=== PATIENT | female | born 1955 | race Caucasian/White ===

== ENCOUNTER → 2017-03-12 | Outpatient (CLI) | payer MEDICAID | LOC: FIMAGING 12:58 | PROVIDERS: ATTEND Psychiatry & Neurology Neurology | DX: M50.321 Other cervical disc degeneration at C4-C5 level (principal); M47.892 Other spondylosis, cervical region; G95.89 Other specified diseases of spinal cord ==

== ENCOUNTER 2017-08-20 05:11 | Observation (INO) | payer MEDICAID ==
[2017-08-20] MEDS ORDERED: GABAPENTIN 300 MG CAP PO ONE (05:38)
[2017-08-20] MEDS ORDERED: ceFAZolin 3 GM in D5W 100 ML IV ONE (05:38)
[2017-08-20] MEDS ORDERED: LIDOCAINE 1% 2 ML INJ ONE (06:12)
[2017-08-20] MEDS ORDERED: LIDOCAINE 1% 2 ML INJ ID PRN (06:14)
[2017-08-20] MEDS ORDERED: LR 1,000 ML IV ONE (06:14)
[2017-08-20] MEDS ORDERED: SURGIFLO MATRIX KIT WITH THROMBIN 8ml TP ONE (06:32)
[2017-08-20] MEDS ORDERED: THROMBIN (BOVINE) 5,000 UNIT VIAL TP ONE ×2 (06:33→07:41)
[2017-08-20] MEDS ORDERED: BUPIVACAINE 0.25% 30 ML SDV ONE (06:33)
[2017-08-20] MEDS ORDERED: BACITRACIN 50,000 UNITS/10 ML SYR IRR ONE (06:34)
[2017-08-20] MEDS ORDERED: CHLORHEXIDINE GLUC HIBICLENS 118 ML BTL TP ONE (06:35)
[2017-08-20] MEDS ORDERED: fentaNYL 100 MCG/2 ML INJ ONE ×4 (07:07→11:29)
[2017-08-20] MEDS ORDERED: MIDAZOLAM 2 MG/2 ML VIAL ONE (07:08)
[2017-08-20] MEDS ORDERED: PROPOFOL/EMULSION 500 MG/50 ML BOTTLE IV ONE ×2 (07:08→07:51)
[2017-08-20] MEDS ORDERED: ALBUMIN 5% 250 ML BOTTLE IV ONE (07:18)
[2017-08-20] MEDS ORDERED: ROCURONIUM 50 MG/5 ML VIAL ONE (07:48)
[2017-08-20] MEDS ORDERED: ONDANSETRON 4 MG/2 ML VIAL ONE (07:48)
[2017-08-20] MEDS ORDERED: DEXAMETHASONE 4 MG/ML VIAL ONE (07:48)
[2017-08-20] MEDS ORDERED: RANITIDINE 50 MG/2 ML VIAL ONE (07:48)
[2017-08-20] MEDS ORDERED: METOCLOPRAMIDE 10 MG/2 ML VIAL ONE (07:48)
[2017-08-20] MEDS ORDERED: LIDOCAINE 2% 5 ML SDV ONE (07:48)
--- NOTE | 2017-08-20 07:50 | PDANEPAE ---
ANE Past Medical History - Cardiovascular History Hx Hypertension: Yes Hx Arrhythmias: No Hx Chest Pain: No Hx Coronary Artery / Peripheral Vascular Disease: No Hx CHF / Valvular Disease: No Hx Palpitations: No Cardiovascular History Comment: HYPERLIPIDEMIA - Pulmonary History Hx COPD: No Hx Asthma/Reactive Airway Disease: No Hx Recent Upper Respiratory Infection: No Hx Oxygen in Use at Home: No Hx Sleep Apnea: No Sleep Apnea Screening Result - Last Documented: Negative - Neurologic History Hx Cerebrovascular Accident: No Hx Seizures: No Hx Dementia: No Neurologic History Comment: MIGRAINES - Endocrine History Hx Diabetes: No - Renal History Hx Renal Disorders: No - Liver History Hx Hepatic Disorders: No - Neurological & Psychiatric Hx Hx Neurological and Psychiatric Disorders: No - Cancer History Hx Cancer: No - Congenital Disorder History Hx Congenital Disorders: No - GI History Hx Gastrointestinal Disorders: No - Other Health History Other Health History: NEG - Chronic Pain History Chronic Pain: Yes (NECK AND LOW BACK) - Surgical History Prior Surgeries: HYSTERECTOMY. APPENDECTOMY. C SECTION ANE Review of Systems Review of Systems: - Exercise capacity METS (RN): 4 METS ANE Patient History - Allergies Allergies/Adverse Reactions: acetaminophen [From Tylenol] Allergy (Intermediate, Verified 02/02/14 11:42) Vomiting - Home Medications Home Medications: Atorvastatin Calcium [Lipitor 40 mg (*)] 40 mg PO HS 08/31/16 [Last Taken Unknown] Ibuprofen [Motrin (*)] 800 mg PO DAILY PRN 07/31/17 [Last Taken Unknown] Losartan Potassium [Cozaar 50 mg (*)] 50 mg PO HS 07/31/17 [Last Taken Unknown] SUMAtriptan [Imitrex 25 MG (*)] 25 mg PO DAILY PRN 08/06/17 [Last Taken Unknown] - NPO status NPO Since - Liquids (Date): 08/19/17 NPO Since - Liquids (Time): 21:30 NPO Since - Solids (Date): 08/19/17 NPO Since - Solids (Time): 05:30 - Smoking Hx Smoking Status: Never smoked - Family Anes Hx Family Hx Anesthesia Complications: NEG ANE Labs/Vital Signs - Vital Signs Blood Pressure: 114/77 Heart Rate: 73 Respiratory Rate: 16 O2 Sat (%): 93 Height: 154.94 cm Weight: 62.596 kg ANE Physical Exam - Airway Neck exam: FROM, short neck Mallampati Score: Class 2 Mouth exam: normal dental/mouth exam - Pulmonary Pulmonary: no respiratory distress, no rales or rhonchi, clear to auscultation - Cardiovascular Cardiovascular: regular rate and rhythym, no murmur, rub, or gallop - ASA Status ASA Status: III ANE Anesthesia Plan Anesthesia Plan: general endotracheal anesthesia Specialized Airway: video laryngoscope
[2017-08-20] MEDS ORDERED: LR 500 ML IV PRN (07:56)
[2017-08-20] MEDS ORDERED: METOCLOPRAMIDE 10 MG/2 ML VIAL IVP PRN (07:56)
[2017-08-20] MEDS ORDERED: DIAZEPAM 5 MG/ML 1 ML SYR IVP PRN (07:56)
[2017-08-20] MEDS ORDERED: DEXAMETHASONE 4 MG/ML VIAL IVP PRN (07:56)
[2017-08-20] MEDS ORDERED: PROMETHAZINE HCL 25 MG/ML INJ IVP PRN ×2 (07:56→09:56)
[2017-08-20] MEDS ORDERED: ALBUTEROL 3 ML DEYVIAL IH PRN (07:56)
[2017-08-20] MEDS ORDERED: ONDANSETRON 4 MG/2 ML VIAL IVP PRN ×2 (07:56→09:56)
[2017-08-20] MEDS ORDERED: MEPERIDINE 25 MG/ML SYR IVP PRN (07:56)
[2017-08-20] MEDS ORDERED: NALOXONE HCL 0.4 MG/ML INJ IVP PRN (07:56)
[2017-08-20] MEDS ORDERED: SUGAMMADEX SODIUM 200 MG/2 ML VIAL IVP ONE (09:30)
[2017-08-20] MEDS ORDERED: SUMAtriptan 25 MG TAB PO PRN (09:55)
[2017-08-20] MEDS ORDERED: BISACODYL 10 MG SUPP PR PRN (09:56)
[2017-08-20] MEDS ORDERED: LACTULOSE 20 GM/30 ML UDCUP PO PRN (09:56)
[2017-08-20] MEDS ORDERED: POLYETHYLENE GLYCOL 3350 17 GM PKT PO PRN (09:56)
[2017-08-20] MEDS ORDERED: ONDANSETRON DISINTEGRATING 4 MG TAB PO PRN (09:56)
[2017-08-20] MEDS ORDERED: MAGNESIUM HYDROXIDE 30 ML UDCUP PO PRN (09:56)
[2017-08-20] MEDS ORDERED: diphenhydrAMINE 25 MG CAP PO PRN (09:56)
[2017-08-20] MEDS ORDERED: NS W/ 20 KCl/L 1,000 ML IV SCH (10:00)
[2017-08-20] MEDS: fentaNYL 100 MCG/2 ML INJ IVP PRN ×3 (10:04→11:42)
[2017-08-20] MEDS: CYCLOBENZAPRINE 10 MG TAB PO PRN ×2 (10:46→20:26)
--- NOTE | 2017-08-20 10:46 | POSTOPPROG ---
Post Op Note Date of Operation: 08/20/17 Surgeon: Claude Seals Stallion Manager: Leandra Allen Anesthesia: GET(General Endotracheal) Pre-op Diagnosis: Cervical stenosis with myelopathy Post-op Diagnosis: Same Procedure: ACDF C4-6 Inf/Abcess present in the surg proc area at time of surgery?: No Depth: Organ Space EBL: Minimal SOAP Progress Note Assessment/Plan: Assessment: Plan: 08/20/17 10:43 S: Patient in PACU. Has expected posterior scapular pain. 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 Seals in PACU Objective: Vital Signs Temp Pulse Resp BP Pulse Ox 35.7 C L 73 12 138/81 H 100 08/20/17 09:48 08/20/17 09:18 08/20/17 10:40 08/20/17 10:31 08/20/17 10:40
--- NOTE | 2017-08-20 10:58 | GOP ---
[f rep st] OPERATIVE REPORT DATE OF OPERATION: 08/20/2017 SURGEON: Claude Seals MD NEUROSURGEON: Claude Seals MD MAIL TECHNICIAN: SARAH Winter PREOPERATIVE DIAGNOSIS: Cervical myelopathy. POSTOPERATIVE DIAGNOSIS: Cervical myelopathy. PROCEDURE PERFORMED: 1. C4-5, C5-6 anterior cervical diskectomy and fusion. 2. Placement of interbody device at C4-5, C5-6. 3. Anterior instrumentation C4-C6. 4. [place] of local autograft. 5. Use of allograft demineralized bone matrix. 6. Use of the operative microscope. 7. Intraoperative neurophysiologic monitoring including somatosensory evoked potentials and motor ev oked potentials. FINDINGS: Successful ACDF. SPECIMENS: There were no specimens. ESTIMATED BLOOD LOSS: 25 cc. INDICATIONS: The patient is a 61-year-old woman who presented with bilateral right greater than left arm and hand weakness and balance problems. She was found to be myelopathic on physical exam, and M RI showed severe cervical stenosis at C4-5 and worse at C5-6 with a large disk osteophyte complex tow gildardo the right side with cord compression and signal change. She was scheduled electively today for a nterior cervical decompression and fusion. DESCRIPTION OF PROCEDURE: After informed consent was obtained from the patient, the patient was brou ght to the operating room, was placed in supine position on the operating table. A formal time-out w as performed, identifying the patient by name, medical record number, and date of . Preoperativ e antibiotics were given. The endotracheal tube was placed and general endotracheal anesthesia was s moothly induced. The patient's head was then slightly extended and a shoulder roll was placed. All appropriate monitoring leads were placed for intraoperative somatosensory evoked potentials and motor evoked potentials. Baseline potentials were obtained. The level incision was visualized using a la teral x-ray and the neck was prepped and draped in the normal sterile fashion. Then, 10 cc of 0.25% Marcaine with epinephrine was infiltrated in the skin for hemostasis. The skin incision was then mad e using a 10 blade and the subcutaneous tissues were dissected using monopolar electrocautery. The s kin was undermined over the platysma to get a more longitudinal exposure and the platysma was opened in line with its fibers. The avascular plane between the sternocleidomastoid and the midline structu res were then dissected down to the prevertebral fascia. The prevertebral fascia was opened sharply a nd the nearest 2 disk spaces were visualized. A disk space marker was placed which marked the disk s pace at C5-6. The longus colli muscles were then elevated from the C5-6 and C4-5 disk spaces lateral ly. The anterior osteophytes were removed and then self-retaining retractors were placed under the l ongus colli bilaterally at C4-5. [place] pins were placed in the C4 and C5 vertebral bodies and the d isk space was placed under some mild distraction. The operative microscope was then brought on the [facility] and the remainder of the procedure was performed under high-power magnification. First, the disk was completely removed using curettes and pituitary forceps. The cartilaginous endpl ates were also removed using sharp curettes getting us down to bleeding bone. Posteriorly, the poste rior osteophytes were drilled down and the posterior longitudinal ligament was opened. The ligament was then removed completely into both foramen being sure that both foramina were widely decompressed. At this point, the endplates were drilled in parallel and the disk space was sized for a 7 x 14 x 1 6 mm Medtronic PTC cage. This cage was then packed with the locally harvested autograft from the ost eophytes and endplates as well as some demineralized bone matrix and this was placed into the intersp evaristo. Lateral x-ray confirmed good placement and the intraoperative neurophysiologic monitoring remai deni stable. We then moved the [place] distraction down to the C5-6 disk space which was also placed u nder some distraction. This disk space was quite collapsed. The anterior osteophytes were removed a nd the disk was removed. A 7 mm Sizer was then used to open the disk space further and it was placed under [place] distraction. We then drilled again the posterior osteophytes and there was a very larg e osteophyte on the right side, which was carefully drilled down. We were then able to separate this bone from the dura and it was completely removed, completely decompressing the thecal sac. Both for tristen were opened widely and again the endplates were drilled in parallel. This was again sized for a 7 x 14 x 16 mm Medtronic PTC cage, which was packed with the locally harvested autograft and allogr aft demineralized bone matrix. This was then placed into the C5-C6 disk space and a lateral radiogra ph again confirmed good placement. Motor-evoked and somatosensory-evoked potentials remained stable. At this point, the wound was copiously irrigated using bacitracin irrigation. The anterior surface of the spine was sized for a 37 mm Medtronic Zevo plate, which was bent into slight lordosis and thi s was then secured to each of the C4, C5 and C6 vertebral bodies using 15 mm titanium screws. Again, a lateral radiograph confirmed good placement of all the hardware. The neurophysiologic monitoring remained stable. Again, the wound was copiously irrigated using bacitracin irrigation. All bleeding was controlled with bipolar electrocautery. The wound was completely dry, so no drain was placed. The platysma was closed using interrupted 2-0 Vicryls. The deep dermis was closed using interrupted 2 -0 Vicryl. The skin was closed using Dermabond. The patient was awakened in the operating room. Siomara caldera was transferred to the PACU in stable condition. There were no operative complications. I was scr ubbed and present for the entire procedure. FLUIDS AND URINE OUTPUT: Per the Anesthesia record. DRAIN: There were no drains. COUNT: All sponge and needle counts were correct at the end of the case. All neurophysiologic monit oring remained at baseline throughout the case. /[id number]/MODL
[2017-08-20] MEDS ORDERED: oxyCODONE IR 5 MG TAB ONE (11:29)
[2017-08-20] MEDS ORDERED: ACETAMINOPHEN 325 MG TAB ONE (11:29)
--- NOTE | 2017-08-20 11:31 | POSTANESTH ---
Post Anesthetic Evaluation Cardiovascular Status: Normal, Stable Respiratory Status: Normal, Stable Level of Consciousness/Mental Status: Mildly Sleepy, Arousable Pain Control: Adequate, Prn Tx Ordered Nausea/Vomiting Control: Adequate, Prn Tx Ordered Complications Possibly Related to Anesthesia: None Noted
[2017-08-20] MEDS: oxyCODONE IR 5 MG TAB PO PRN ×3 (11:39→20:26)
[2017-08-20] MEDS: ceFAZolin 2 GM/SWFI 2 GM/20 ML SYR IVP SCH (13:44)
[2017-08-20] MEDS ORDERED: ceFAZolin 2 GM/DEXTROSE 100 ML IV SCH (14:00)
--- NOTE | 2017-08-20 16:24 | ASMTCMCOM ---
CM Note CM Note Notes: Pt is s/p C4-5, C5-6 diskectomy and fusion. PT/OT/SLT evals pending. CM will follow for any d/c needs. Date Signed: 08/20/2017 04:23 PM Electronically Signed By:CHAI Banuelos
--- NOTE | 2017-08-20 17:23 | SOAPPROG ---
SOAP Progress Note Assessment/Plan: Assessment Patient has superficial corneal abrasion in the left eye. She complained of dry and painful eye. Eye lubricant applied and covered with patch around 1pm. By 5pm when I went to visit her, the eye was feeling better, less painful. I reassured her that most corneal abrasions heal in 24 hr and she should be better tomorrow. Plan:Reapply the eye ointment as needed and avoid rubbing the eye if possible 08/20/17 17:19 Subjective: 1eye pain left Objective: Vital Signs Temp Pulse Resp BP Pulse Ox 36.6 C 114 H 16 130/77 H 96 08/20/17 16:11 08/20/17 16:11 08/20/17 16:11 08/20/17 16:11 08/20/17 16:11 08/19/17 08/20/17 08/21/17 05:59 05:59 05:59 Intake Total 1600 Output Total 670 Balance 930 1 - Time Spent With Patient Time Spent With Patient: 10min ICD10 Worksheet Patient Problems: Problems Problem Status Onset Cervical myelopathy Acute
[2017-08-20] MEDS: LOSARTAN POTASSIUM 50 MG TAB PO SCH ×2 (20:26→20:27)
[2017-08-20] MEDS: SENNOSIDES/DOCUSATE SODIUM TAB PO SCH (20:29)
[2017-08-20] MEDS ORDERED: ATORVASTATIN CALCIUM 40 MG TAB PO SCH (21:00)
[2017-08-21] MEDS: ceFAZolin 2 GM/SWFI 2 GM/20 ML SYR IVP SCH (01:18)
[2017-08-21] MEDS: oxyCODONE IR 5 MG TAB PO PRN ×3 (03:01→14:09)
[2017-08-21] MEDS: SENNOSIDES/DOCUSATE SODIUM TAB PO SCH (07:13)
--- NOTE | 2017-08-21 07:20 | NEUSURGPN ---
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 Seals Subjective: Pt resting in bed, states she is having some mild swallowing issues, eye pain is improved. Arms feel ok. Objective: AAOx3 NAD VSS MAEx4 Motor 5/5 BUE/BLE Clonus BLE C collar on Incision cdi Urinary Catheter in Place: No - Physician Discussed Patient with : Arnel Patient Seen by : Arnel Neurosurgery Physical Exam - Vitals, I&O, Labs I and O 08/20/17 08/21/17 08/22/17 05:59 05:59 05:59 Intake Total 2500 Output Total 1970 Balance 530 Weight 62.59 kg Intake: Oral (ml) 1500 IV Intake (ml) 1000 Output: Urine (ml) 1950 Toilet 1950 Estimated Blood Loss (ml) 20 Other: Intake Quantity Yes Sufficient Number of Voids Toilet 1 Vital Signs Temp Pulse Resp BP Pulse Ox 36.6 C 98 17 124/71 H 97 08/21/17 03:25 08/21/17 03:25 08/21/17 03:25 08/21/17 03:25 08/21/17 03:25 ICD10 Worksheet Patient Problems: Problems Problem Status Onset Cervical myelopathy Acute - ICD10 Problem Qualifiers (1) Cervical myelopathy
--- NOTE | 2017-08-21 15:41 | ASMTCMCOM ---
CM Note CM Note Notes: OT rec home/outpatient, PT rec home, [facility] rec home. Anticipate pt will d/c when medically stable with family support. No CM d/c needs identified at this time. CM available for changes/needs. Date Signed: 08/21/2017 03:41 PM Electronically Signed By:CHAI Killian
[2017-08-21 15:57] VITALS: BP 125/67; PULSE 92; RESP 15; TEMP 98.4; O2SAT 85
[2017-08-23] MEDS ORDERED: ENOXAPARIN 40 MG/0.4 ML SYR SC SCH (09:00)
== END 2017-08-21 17:46 | disposition home or self-care (01) ==
LOC: F3N 05:11
PROVIDERS: ADMIT Neurological Surgery; ATTEND Neurological Surgery
PROC: 4A10X4G Monitoring of Central Nervous Electrical Activity, Intraoperative, External Approach (ICD-10-PCS; principal; 2017-08-20 07:15)
PROC: 0RB30ZZ Excision of Cervical Vertebral Disc, Open Approach (ICD-10-PCS; principal; 2017-08-20 07:15)
PROC: 00NW0ZZ Release Cervical Spinal Cord, Open Approach (ICD-10-PCS; principal; 2017-08-20 07:15)
PROC: 0RG20A0 Fusion of 2 or more Cervical Vertebral Joints with Interbody Fusion Device, Anterior Approach, Anterior Column, Open Approach (ICD-10-PCS; principal; 2017-08-20 07:15)
DX: M47.12 Other spondylosis with myelopathy, cervical region (principal); S05.02XA Injury of conjunctiva and corneal abrasion without foreign body, left eye, initial encounter; X58.XXXA Exposure to other specified factors, initial encounter; Y92.234 Operating room of hospital as the place of occurrence of the external cause; Y99.8 Other external cause status; I10 Essential (primary) hypertension
CPT/HCPCS: 22551; 22552; 72040; 76001; 92610; 97116; 97161; 97165; 97535; G0378; C1713; J0171; J0690; J1100; J2250; J2270; J2405; J2704; J2765; J2780; J3010; P9041

== ENCOUNTER → 2017-12-04 | Outpatient (CLI) | payer MEDICAID | LOC: FIMAGING 13:11 | PROVIDERS: ATTEND Physician Assistant | DX: M54.2 Cervicalgia (principal); Z98.1 Arthrodesis status ==

== ENCOUNTER → 2018-02-22 | Outpatient (CLI) | payer MEDICAID | LOC: FIMAGING 18:39 | PROVIDERS: ATTEND Physician Assistant | DX: M51.16 Intervertebral disc disorders with radiculopathy, lumbar region (principal) ==

== ENCOUNTER → 2018-03-06 | Outpatient (CLI) | payer MEDICAID | LOC: FIMAGING 17:07 | PROVIDERS: ATTEND Neurological Surgery | DX: Z47.89 Encounter for other orthopedic aftercare (principal); Z98.1 Arthrodesis status ==

== ENCOUNTER → 2018-03-21 | Outpatient (CLI) | payer MEDICAID | LOC: FIMAGING 09:16 | PROVIDERS: ATTEND Physician Assistant | DX: M51.36 Other intervertebral disc degeneration, lumbar region (principal); M43.16 Spondylolisthesis, lumbar region; M53.87 Other specified dorsopathies, lumbosacral region; M41.86 Other forms of scoliosis, lumbar region ==

== ENCOUNTER 2018-03-25 07:04 | Inpatient (IN) | payer MEDICAID ==
[2018-03-25] MEDS ORDERED: LIDOCAINE 1% 2 ML INJ ID PRN (07:18)
[2018-03-25] MEDS ORDERED: ceFAZolin 2 GM/DEXTROSE 100 ML IV ONE (07:18)
[2018-03-25] MEDS ORDERED: LR 1,000 ML IV ONE (07:18)
[2018-03-25] MEDS ORDERED: GABAPENTIN 300 MG CAP PO ONE (07:18)
--- NOTE | 2018-03-25 09:16 | PDHPUP ---
History & Physical Update H&P update statement: This history and physical update is based on an assessment of the patient which was completed after admission or registration (within 24 hours), but prior to the surgery/procedure. H&P update: H&P reviewed & patient examined, no change in patient's condition since H&P completed
[2018-03-25] MEDS ORDERED: BUPIVACAINE 0.25% 30 ML SDV ONE (09:17)
[2018-03-25] MEDS ORDERED: CHLORHEXIDINE GLUC HIBICLENS 118 ML BTL TP ONE (09:17)
[2018-03-25] MEDS ORDERED: EPINEPHrine 1 MG/ML INJ ONE (09:18)
[2018-03-25] MEDS ORDERED: BACITRACIN 50,000 UNITS/10 ML SYR IRR ONE (09:18)
[2018-03-25] MEDS ORDERED: THROMBIN (BOVINE) 5,000 UNIT VIAL TP ONE ×2 (09:18→09:43)
[2018-03-25] MEDS ORDERED: REMIFENTANIL HCL 1 MG VIAL ONE (09:35)
[2018-03-25] MEDS ORDERED: PROPOFOL 200 MG/20 ML VIAL ONE (09:35)
[2018-03-25] MEDS ORDERED: ROCURONIUM 50 MG/5 ML VIAL ONE (09:36)
[2018-03-25] MEDS ORDERED: LIDOCAINE 2% 2 ML INJ ONE (09:36)
[2018-03-25] MEDS ORDERED: PROPOFOL/EMULSION 500 MG/50 ML BOTTLE IV ONE (09:36)
[2018-03-25] MEDS ORDERED: MIDAZOLAM 2 MG/2 ML VIAL ONE (09:41)
[2018-03-25] MEDS ORDERED: MIDAZOLAM 2 MG/2 ML VIAL IVP ONE (09:41)
--- NOTE | 2018-03-25 09:42 | PDANEPAE ---
ANE History of Present Illness 62 year old with spinal stenosis ANE Past Medical History - Cardiovascular History Hx Hypertension: Yes Hx Arrhythmias: No Hx Chest Pain: No Hx Coronary Artery / Peripheral Vascular Disease: No Hx CHF / Valvular Disease: No Hx Palpitations: No Cardiovascular History Comment: HYPERLIPIDEMIA - Pulmonary History Hx COPD: No Hx Asthma/Reactive Airway Disease: No Hx Recent Upper Respiratory Infection: No Hx Oxygen in Use at Home: No Hx Sleep Apnea: No Sleep Apnea Screening Result - Last Documented: Negative - Neurologic History Hx Cerebrovascular Accident: No Hx Seizures: No Hx Dementia: No Neurologic History Comment: MIGRAINES - Endocrine History Hx Diabetes: No - Renal History Hx Renal Disorders: No - Liver History Hx Hepatic Disorders: No - Neurological & Psychiatric Hx Hx Neurological and Psychiatric Disorders: No - Cancer History Hx Cancer: No - Congenital Disorder History Hx Congenital Disorders: No - GI History Hx Gastrointestinal Disorders: No Gastrointestinal History Comment: hx of hemorrhoidectomy - Other Health History Other Health History: wears glasses - Chronic Pain History Chronic Pain: Yes (back) - Surgical History Prior Surgeries: 08/20/17 ACDF C4-6 with Seals. 01/26/12 hemorrhoidectomy with [facility]. HYSTERECTOMY. APPENDECTOMY. C SECTION ANE Review of Systems Review of systems is: negative Review of Systems: - Exercise capacity METS (RN): 4 METS ANE Patient History - Allergies Allergies/Adverse Reactions: acetaminophen [From Tylenol] Allergy (Verified 03/20/18 13:12) Vomiting - Home Medications Home medications: home medication list seen and reviewed Home Medications: Atorvastatin Calcium [Lipitor 40 mg (*)] 40 mg PO HS 08/31/16 [Last Taken ] Losartan Potassium [Cozaar 50 mg (*)] 50 mg PO HS 07/31/17 [Last Taken 03/23/18] SUMAtriptan [Imitrex 25 MG (*)] 25 mg PO DAILY PRN 08/06/17 [Last Taken 2 Weeks Ago ~03/11/18] Fluticasone Nasal [Flonase Nasal [place] (RX)] 2 sprays EACHNARE DAILY PRN [Last Taken 1 Month Ago ~02/23/18] - NPO status NPO Since - Liquids (Date): 03/24/18 NPO Since - Liquids (Time): 20:30 NPO Since - Solids (Date): 03/24/18 NPO Since - Solids (Time): 20:00 - Smoking Hx Smoking Status: Never smoked - Family Anes Hx Family Hx Anesthesia Complications: none ANE Labs/Vital Signs - Vital Signs Blood Pressure: 147/88 Heart Rate: 68 Respiratory Rate: 16 O2 Sat (%): 98 Height: 154.94 cm Weight: 61.235 kg ANE Physical Exam - Airway Neck exam: FROM Mallampati Score: Class 2 Mouth exam: normal dental/mouth exam - Pulmonary Pulmonary: no respiratory distress - Cardiovascular Cardiovascular: regular rate and rhythym - ASA Status ASA Status: II ANE Anesthesia Plan Anesthesia Plan: general endotracheal anesthesia
[2018-03-25] MEDS ORDERED: THROMBIN (BOVINE) 20,000 UNIT VIAL TP ONE (10:12)
[2018-03-25] MEDS ORDERED: NALOXONE HCL 0.4 MG/ML INJ IVP PRN (14:18)
[2018-03-25] MEDS ORDERED: ONDANSETRON 4 MG/2 ML VIAL IVP PRN ×2 (14:18→14:48)
[2018-03-25] MEDS ORDERED: PROMETHAZINE HCL 25 MG/ML INJ IVP PRN ×2 (14:18→14:48)
--- NOTE | 2018-03-25 14:31 | POSTANESTH ---
Post Anesthetic Evaluation Cardiovascular Status: Normal, Stable Respiratory Status: Normal, Stable Level of Consciousness/Mental Status: Can Participate in Eval Pain Control: Inadeq, Add Tx Required Nausea/Vomiting Control: Adequate, Prn Tx Ordered Complications Possibly Related to Anesthesia: None Noted
[2018-03-25] MEDS ORDERED: fentaNYL 100 MCG/2 ML INJ ONE ×3 (14:32→15:57)
[2018-03-25] MEDS: fentaNYL 100 MCG/2 ML INJ IVP PRN ×4 (14:34→15:32)
[2018-03-25] MEDS ORDERED: METHOCARBAMOL 1,000 MG in NS 50 ML IV ONE (14:45)
[2018-03-25] MEDS ORDERED: HYDROmorphONE/DILAUDID 2 MG/ML INJ ONE (14:45)
[2018-03-25] MEDS ORDERED: SUMAtriptan 25 MG TAB PO PRN (14:46)
[2018-03-25] MEDS ORDERED: FLUTICASONE NASAL 120 SPRAYS/16 GM MDI EACHNARE PRN (14:46)
[2018-03-25] MEDS: HYDROmorphONE/DILAUDID 2 MG/ML INJ IVP PRN ×2 (14:46→15:20)
[2018-03-25] MEDS ORDERED: LACTULOSE 20 GM/30 ML UDCUP PO PRN (14:48)
[2018-03-25] MEDS ORDERED: BISACODYL 10 MG SUPP PR PRN (14:48)
[2018-03-25] MEDS ORDERED: POLYETHYLENE GLYCOL 3350 17 GM PKT PO PRN (14:48)
[2018-03-25] MEDS ORDERED: MAGNESIUM HYDROXIDE 30 ML UDCUP PO PRN (14:48)
[2018-03-25] MEDS ORDERED: NS 1,000 ML IV SCH (15:00)
--- NOTE | 2018-03-25 15:02 | POSTOPPROG ---
Post Op Note Date of Operation: 03/25/18 Surgeon: Claude Seals Copy Messenger: Leandra Allen PA-C Anesthesia: GET(General Endotracheal) Pre-op Diagnosis: Lumbar Spondylolisthesis Post-op Diagnosis: Same Procedure: L4/5, L5/S1 TLIF with central decompression at L4/5 Inf/Abcess present in the surg proc area at time of surgery?: No EBL: 50-100 (50) Complications: one observed SOAP Progress Note Assessment/Plan: Assessment: Plan: 03/25/18 14:59 S: Patient is in PACU complaining of expected back pain. O: NAD, VSS PERRL, EOMI Following commands BLE 5/5 = Sensation intact to lt touch Incisions c/d/i-dressed A; 62 yo female sp MIS L4/5, L5/S1 TLIF and central decompression at L4/5 for spondylolisthesis and right leg pain P: -Admit to med/surg -Optimize pain management -Advance diet as tolerated -Postop x-rays in am -PT/OT -Remove sibley in am -No brace -DVT: TEDs, SCDs, Lovenox to start POD #1 -Seen by Dr. Seals in PACU Objective: Vital Signs Temp Pulse Resp BP Pulse Ox 36.3 C 68 16 147/88 H 98 03/25/18 14:25 03/25/18 09:42 03/25/18 09:42 03/25/18 09:42 03/25/18 14:58
[2018-03-25] MEDS ORDERED: KETOROLAC 30 MG/1 ML SDV IVP ONE (15:09)
[2018-03-25] MEDS ORDERED: KETOROLAC 30 MG/1 ML SDV ONE ×4 (15:10→15:15)
[2018-03-25] MEDS ORDERED: oxyCODONE IR 5 MG TAB ONE (15:57)
[2018-03-25] MEDS: oxyCODONE IR 5 MG TAB PO PRN ×3 (15:58→22:57)
--- NOTE | 2018-03-25 16:25 | GOP ---
DATE OF OPERATION: 03/25/2018 SURGEON: Claude Seals MD NEUROSURGEON: Claude Seals MD. BOILERMAKER MECHANIC: [facility] ANESTHESIA: General endotracheal. PREOPERATIVE DIAGNOSIS: Lumbar stenosis with spondylolisthesis at L5-S1 and severe stenosis at L4-5. POSTOPERATIVE DIAGNOSIS: Lumbar stenosis with spondylolisthesis at L5-S1 and severe stenosis at L4-5 . PROCEDURE PERFORMED: 1. Minimally invasive lumbar decompression at L4-5. 2. Minimally invasive transforaminal lumbar interbody fusion, L4-5, L5-S1. 3. Placement of interbody device, L4-5, L5-S1. 4. Posterior spinal fusion L4 to S1. 5. [place] of local autograft. 6. Use of allograft, BMP, and cancellous bone chips. 7. O-arm/Stealth stereotactic navigation for screw and tubular retractor placement. 8. Use of the operating microscope. 9. Intraoperative somatosensory evoked potential and EMG monitoring. FINDINGS: Successful L4 to S1 TLIF. SPECIMENS: None. There were no drains. ESTIMATED BLOOD LOSS: 50 mL. Fluids and urine output per the anesthesia record. INDICATIONS: The patient is a 62-year-old woman whom I have previously done ACDF surgery on for cerv ical radiculopathy. She presented back to the clinic with bilateral leg numbness and right leg pain. MRI reveals a spondylolisthesis at L5-S1 and severe canal stenosis with very severe facet arthropat hy at L4-5. Of note, she has a transitional lumbar anatomy and therefore the numbering of the inters paces is as was done on the MRI scan. We discussed with her the option of decompression and lumbar i nterbody fusion at L4-5 and L5-S1. She presents electively today for the surgery. DESCRIPTION OF PROCEDURE: After informed consent was obtained from the patient, the patient was brou ght to the operating room and a formal time-out was performed, identifying the patient by name, medic al record number, and date of . Preoperative antibiotics were given. The endotracheal tube was placed and general endotracheal anesthesia was smoothly induced. All appropriate leads were placed for intraoperative neurophysiologic monitoring. The patient was turned to the prone position on the Dhiraj table. All appropriate pressure points were padded and checked. The lumbar region was then prepped and draped in normal sterile fashion. A stab incision was made over the left iliac crest, an d the percutaneous navigation pin was placed in the iliac crest. The navigation frame was attached a nd an O-arm spin was obtained, showing the relevant anatomy from L3 to S1. At this point, the naviga tion was then used to localize a trajectory to the L4-5 and L5-S1 disk spaces as well as the trajecto ry to each pedicle at L4, L5, and S1. These trajectories were marked laterally to form 2 cm Juan i ncisions on both sides. On the right side, the incision was made using a 10 blade and the subcutaneo us tissues were dissected using monopolar electrocautery. The superficial fascia was opened and sepa rated from the deep lumbar fascia, and this allowed us to get a more medial trajectory. The fascia w as then opened near the midline and the metrics tubular retractors were used to dock onto the L4 lami na over the L4-5 interspace. An 18 mm x 7 cm quadrant retractor was then placed and opened. The ope rative microscope was brought on the field and the remainder of the procedure was performed under hig h-power magnification. First, the muscle was debrided from the lamina and facet joint. The high-speed drill with a 3 mm aaliyah mond bur was then used to drill a hemilaminotomy and medial facetectomy at L4-5 on the right side. T he yellow ligament was then opened and the yellow ligament was quite redundant and compressive of the dura. As we continued removing ligament, the dura was decompressed. The traversing L5 nerve root w as completely decompressed and we were able to then drill the undersurface of the contralateral minerva a and decompress the opposite side, as well. Once we had a good decompression, copious irrigation wa s used to irrigate the epidural space and some Gelfoam was placed over the opening. The retractor wa s then removed, and the fascia was closed using interrupted 0 Vicryl. We then made a 2nd fascial inc ision more lateral under the Juan incision, in line with the pedicles of L4, L5, and S1. The tubul ar dilators were used to dilate onto the L4-5 facet joint and again an 18 mm by 7 cm quadrant retract or was docked into the right-sided facet joint. There was extreme facet hypertrophy, making this fide ewhat difficult. Using navigation, we then localized the undersurface of the L4 pedicle and the supe rior surface of the L5 pedicle as well as medial as we could obtain toward the laminectomy that we acosta shelbi already performed. The high-speed drill with a 3 mm adilson bur was used to drill a trough just in ferior to the L4 pedicle and just superior to the L5 pedicle. The inferior facet of L4 was completel y removed and the superior facet of L5 was drilled, completely decompressing the foramen. At this po int, the remainder of the yellow ligament was removed, completely decompressing the traversing L5 ner ve root. After this was decompressed, the disk space was evident. The nerve root was retracted medi ally and the disk space was incised. A combination of constantino and curettes was used to perform a com plete diskectomy, and the cartilaginous endplates were removed, leaving bleeding bone. We continued removing disk and scraping the endplates to perform a good fusion. A piece of BMP and some morselize d autograft as well as allograft cancellous bone chips were then placed into the disk space and then the disk space was sized for a 7 x 28 mm Atlas [employer] Elevate cage, which was packed with further BMP an d autograft. This was then placed into the interspace using navigation and opened to its full extent . More bone graft was packed laterally into the interspace for good interbody fusion. At this point , a piece of Gelfoam was placed over the nerve root in the foramen and the metrics dilators were then again used to remove the retractors down to the L5-S1 facet joint. The same procedure was performed where the inner surface of the L5 pedicle and the superior surface of the S1 pedicle were localized using the navigation and troughs were drilled below the L5 pedicle and above the S1 pedicle. Drillin g medially, we removed the inferior facet of L5 and this allowed some decompression of the nerve root . Again, the redundant yellow ligament was completely removed, completely decompressing the traversi ng S1 nerve root and the exiting L5 nerve root. The disk space again was visualized where the spondy lolisthesis was located, and we retracted the S1 nerve root medially. The disk space was then entere d and again a radical diskectomy was performed as described above. Once the cartilaginous endplates had been removed and the disk had been removed completely removed, some BMP and autograft mixed with cancellous bone chip allograft was placed into the disk space. This interspace was sized for a 7 x 2 3 mm Medtronic Elevate cage, which was packed with some BMP and autograft. This was again placed int o the interspace using stereotaxis and then opened to its full extent. Again, more bone graft was pl aced in the interbody space for the interbody fusion. Next, the retractor was removed. A 2nd O-arm spin was obtained, showing the cages in good placement and to get the better anatomy of the pedicles. The sharp tip awl was then used to tabatha the pedicle e ntry points at L4, L5, and S1 on both sides. A 5.5 mm tap was used with navigation to tap each pedic le in succession. Medtronic Solera screws with reduction towers were then placed at each level and 6 .5 x 50 mm screws were placed bilaterally at L4, 6.5 x 50 mm screws were placed bilaterally at L5 and 6.5 x 45 mm screws were placed bilaterally at S1. X-rays were taken and confirmed the screw placeme nt, but each screw had been placed with navigation. At this point, 4.75 x 50 mm titanium rods were p laced in the reduction towers and locked in place using the locking caps. The caps were tightened do wn to their final torque and the reduction towers were removed. Final AP and lateral x-ray showed al l the screws in good placement and the cages in excellent placement, as well. At this point, both wo unds were copiously irrigated using bacitracin irrigation. The fascia was closed using interrupted 0 Vicryl, the deep dermis was closed using interrupted 2-0 Vicryl, and the skin was closed using [place] perez. The navigation pin was removed. Sterile dressings were placed. The patient was then turned b ack in the supine position, where she was extubated and transferred to the PACU in stable condition. There were no operative complications. I was scrubbed and present for the entire procedure. All sp onge and needle counts were correct at the end of the case. /[id number]/MODL
--- NOTE | 2018-03-25 16:39 | PDMN ---
Medical Necessity Medical necessity: 62 yo sp CPT 83255 Lumbar Fusion, MCG S820, MC IP Only, s/p L4/5, L5-S1 TLIF w/ Stealth w/ central recess decompression
[2018-03-25] MEDS: POLYETHYLENE GLYCOL 3350 17 GM PKT PO SCH ×2 (16:56→22:57)
[2018-03-25] MEDS: ceFAZolin 2 GM/DEXTROSE 100 ML IV SCH (18:07)
[2018-03-25] MEDS: METHOCARBAMOL 750 MG TAB PO PRN (18:19)
[2018-03-25] MEDS ORDERED: PETROLAT,WHT/MIN OIL/SOD CHL 3.5 GM OPHT.OINT EACHEYE PRN (18:32)
[2018-03-25] MEDS: FAMOTIDINE 20 MG TAB PO SCH (20:36)
[2018-03-25] MEDS: LOSARTAN POTASSIUM 50 MG TAB PO SCH (20:36)
[2018-03-25] MEDS: SENNOSIDES/DOCUSATE SODIUM TAB PO SCH (20:37)
[2018-03-25] MEDS: ATORVASTATIN CALCIUM 40 MG TAB PO SCH (20:37)
[2018-03-25] MEDS: ACETAMINOPHEN 500 MG TAB PO SCH (22:56)
[2018-03-26] MEDS: METHOCARBAMOL 750 MG TAB PO PRN ×3 (00:13→15:53)
[2018-03-26] MEDS: oxyCODONE IR 5 MG TAB PO PRN ×4 (03:01→21:23)
[2018-03-26] MEDS: ceFAZolin 2 GM/DEXTROSE 100 ML IV SCH (03:02)
[2018-03-26] MEDS: ACETAMINOPHEN 500 MG TAB PO SCH ×3 (05:24→21:22)
--- NOTE | 2018-03-26 08:27 | NEUSURGPN ---
Date of Surgery: 03/25/18 Post Op Day: 1 Assessment/Plan: Assessment: 62 yo female sp MIS L4/5, L5/S1 TLIF and central decompression at L4 /5 for spondylolisthesis and right leg pain POD#1 Plan: -Optimize pain management -Advance diet as tolerated -Postop x-rays pending -PT/OT -No brace -DVT: TEDs, SCDs, Lovenox to start POD #1 -Patient discussed with Dr Seals Please call neurosurgery with any questions/concerns Subjective: Sitting up in bed eating breakfast, some incisional and right leg pain Objective: AxO x3 PERRLA PABLO x4 5/5 BLE Sensation intact to light touch BLE, numbness in all toes Dressing CDI Neuro Check Frequency: per routine Urinary Catheter in Place: No Catheter Insertion Date: 03/25/18 - Physician Discussed Patient with Dr.: Seals Neurosurgery Physical Exam - Vitals, I&O, Labs I and O 03/25/18 03/26/18 03/27/18 05:59 05:59 05:59 Intake Total 2880 Output Total 3450 Balance -570 Weight 61.235 kg Intake: Oral (ml) 1180 IV Intake (ml) 1700 Output: Urine (ml) 3400 Catheter 3400 Estimated Blood Loss (ml) 50 Other: Number of Voids Catheter 1 Vital Signs Temp Pulse Resp BP Pulse Ox 36.8 C 102 H 16 121/65 H 96 03/26/18 03:08 03/26/18 03:08 03/26/18 03:08 03/26/18 03:08 03/26/18 03:08 ICD10 Worksheet Patient Problems: Problems Problem Status Onset Cervical myelopathy Acute
[2018-03-26] MEDS: SENNOSIDES/DOCUSATE SODIUM TAB PO SCH ×2 (08:31→21:22)
[2018-03-26] MEDS: FAMOTIDINE 20 MG TAB PO SCH ×2 (08:31→21:22)
[2018-03-26] MEDS: ENOXAPARIN 40 MG/0.4 ML SYR SC SCH (08:31)
[2018-03-26] MEDS: POLYETHYLENE GLYCOL 3350 17 GM PKT PO SCH ×3 (08:32→21:22)
--- NOTE | 2018-03-26 15:41 | ASMTCMCOM ---
CM Note CM Note Notes: Pt had planned surgery for spondylolisthesis. OT rec home today, PT eval pending. Per OT Marilia pt reported her possibly depressed, will not be reliable to assist at home. Pt has support of her christianity. If pt can complete stairs to safely get to second floor apartment pt likely can d/c home. Pt payer source is Medicaid so if SNF is needed pt will need to functionally and financially qualify and commit to 30 day Medicaid LTC SNF stay. CM to follow. Date Signed: 03/26/2018 03:40 PM Electronically Signed By:CHAI Killian
[2018-03-26] MEDS: LOSARTAN POTASSIUM 50 MG TAB PO SCH (21:23)
[2018-03-26] MEDS: ATORVASTATIN CALCIUM 40 MG TAB PO SCH (21:23)
[2018-03-27] MEDS: diphenhydrAMINE 25 MG CAP PO PRN ×2 (05:50→08:22)
[2018-03-27] MEDS: ACETAMINOPHEN 500 MG TAB PO SCH (05:51)
[2018-03-27] MEDS: POLYETHYLENE GLYCOL 3350 17 GM PKT PO SCH ×3 (08:23→22:43)
[2018-03-27] MEDS: FAMOTIDINE 20 MG TAB PO SCH ×2 (08:23→21:08)
[2018-03-27] MEDS: SENNOSIDES/DOCUSATE SODIUM TAB PO SCH ×2 (08:23→22:42)
[2018-03-27] MEDS: ENOXAPARIN 40 MG/0.4 ML SYR SC SCH (08:24)
--- NOTE | 2018-03-27 08:38 | NEUSURGPN ---
Date of Surgery: 03/25/18 Post Op Day: 2 Assessment/Plan: Assessment: 62 yo female sp MIS L4/5, L5/S1 TLIF and central decompression at L4 /5 for spondylolisthesis and right leg pain POD#2 Plan: -Optimize pain management -Postop x-rays stable -PT/OT -No brace -Feels itchy all over- will give another dose of oral Benadryl and continue to monitor. Avoid morphine. If continues may need to stop Oxycodone -DVT: TEDs, SCDs, Lovenox -Patient discussed with Dr Seals Please call neurosurgery with any questions/concerns Subjective: Having pain at the back and down right leg. Feels itchy all over, started in the middle of the night. Objective: Awake. Alert. PERRL. EOMI Facial expression symmetrical Muscle strength full at 5/5 Sensation intact Catheter Insertion Date: 03/25/18 - Physician Discussed Patient with Dr.: Seals Neurosurgery Physical Exam - Vitals, I&O, Labs I and O 03/26/18 03/27/18 03/28/18 05:59 05:59 05:59 Intake Total 2880 1000 Output Total 3450 1000 Balance -570 0 Weight 61.235 kg Intake: Oral (ml) 1180 1000 IV Intake (ml) 1700 Output: Urine (ml) 3400 1000 Catheter 3400 Toilet 1000 Estimated Blood Loss (ml) 50 Other: Intake Quantity Yes Sufficient Number of Voids Catheter 1 Toilet 1 Vital Signs Temp Pulse Resp BP Pulse Ox 36.9 C 77 16 103/54 L 93 03/27/18 07:28 03/27/18 07:28 03/27/18 07:28 03/27/18 07:28 03/27/18 07:28 ICD10 Worksheet Patient Problems: Problems Problem Status Onset Cervical myelopathy Acute
[2018-03-27] MEDS: oxyCODONE IR 5 MG TAB PO PRN ×3 (11:54→21:11)
[2018-03-27] MEDS: METHOCARBAMOL 750 MG TAB PO PRN ×2 (11:54→18:39)
--- NOTE | 2018-03-27 14:19 | ASMTCMCOM ---
CM Note CM Note Notes: PT rec home. Pt declines Meals on Wheels/need for any other community resources. Anticipate pt will d/c when medically stable. CM available for changes/needs. Date Signed: 03/27/2018 02:19 PM Electronically Signed By:CHAI Killian
[2018-03-27] MEDS: LOSARTAN POTASSIUM 50 MG TAB PO SCH (21:06)
[2018-03-27] MEDS: ATORVASTATIN CALCIUM 40 MG TAB PO SCH (21:06)
[2018-03-28] MEDS: METHOCARBAMOL 750 MG TAB PO PRN ×2 (00:47→06:12)
[2018-03-28] MEDS: oxyCODONE IR 5 MG TAB PO PRN ×4 (02:32→20:09)
--- NOTE | 2018-03-28 07:28 | NEUSURGPN ---
Assessment/Plan: Assessment: 62 yo female sp MIS L4/5, L5/S1 TLIF and central decompression at L4 /5 for spondylolisthesis and right leg pain POD#3 Plan: -Optimize pain management -Postop x-rays stable -PT/OT -No brace -Burning with urination -DVT: TEDs, SCDs, Lovenox -Patient discussed with Dr Seals Please call neurosurgery with any questions/concerns Subjective: Burning with urination, felt dizzy leaned forward and felt like she was going to fall while going to bathroom yesterday. Having some low back and leg pain. Objective: Awake. Alert. PERRL. EOMI Facial expression symmetrical Muscle strength full at 5/5 Sensation intact Catheter Insertion Date: 03/25/18 - Physician Discussed Patient with Dr.: Seals Neurosurgery Physical Exam - Vitals, I&O, Labs I and O 03/27/18 03/28/18 03/29/18 05:59 05:59 05:59 Intake Total 1000 1300 Output Total 1000 350 Balance 0 950 Intake: Oral (ml) 1000 1300 Output: Urine (ml) 1000 350 Toilet 1000 350 Other: Intake Quantity Yes Yes Sufficient Number of Voids Toilet 1 2 1 Number of Stools Catheter 2 Vital Signs Temp Pulse Resp BP Pulse Ox 36.2 C 89 16 143/91 H 96 03/27/18 23:19 03/27/18 23:19 03/27/18 23:19 03/27/18 23:19 03/27/18 23:19 ICD10 Worksheet Patient Problems: Problems Problem Status Onset Cervical myelopathy Acute
[2018-03-28] MEDS: ENOXAPARIN 40 MG/0.4 ML SYR SC SCH (09:07)
[2018-03-28] MEDS: SENNOSIDES/DOCUSATE SODIUM TAB PO SCH ×2 (09:08→20:09)
[2018-03-28] MEDS: FAMOTIDINE 20 MG TAB PO SCH ×2 (09:08→20:09)
[2018-03-28] MEDS: POLYETHYLENE GLYCOL 3350 17 GM PKT PO SCH ×3 (09:08→20:11)
[2018-03-28] MEDS: ONDANSETRON DISINTEGRATING 4 MG TAB PO PRN (10:57)
--- NOTE | 2018-03-28 11:12 | ASMTCMCOM ---
CM Note CM Note Notes: OT rec home/HHC, PT rec SNF. Spent time discussing d/c options with pt, pt is not present. Provided pt information about Medicaid SNF stay requiring 30 day commitment and some of the Medicaid options. Pt reports she thinks it best she d/c home with home health PT/OT even if her is not able to assist. The OT note indicates pt was present for OT today and reported he can assist, this CM has not been able to observe the pt/ dynamic first hand. [facility] alerted and can staff pt for d/c today or tomorrow. D/c plan of care: Home with [facility] PT/OT Date Signed: 03/28/2018 11:11 AM Electronically Signed By:CHAI Killian
[2018-03-28] MEDS: METHOCARBAMOL 750 MG TAB PO SCH ×3 (13:29→20:08)
[2018-03-28] MEDS: ATORVASTATIN CALCIUM 40 MG TAB PO SCH (20:09)
[2018-03-28] MEDS: LOSARTAN POTASSIUM 50 MG TAB PO SCH (20:13)
[2018-03-29] MEDS: oxyCODONE IR 5 MG TAB PO PRN ×3 (02:26→15:34)
[2018-03-29] MEDS: METHOCARBAMOL 750 MG TAB PO SCH ×2 (05:31→14:38)
--- NOTE | 2018-03-29 06:27 | NEUSURGPN ---
Assessment/Plan: Assessment: 62 yo female sp MIS L4/5, L5/S1 TLIF and central decompression at L4 /5 for spondylolisthesis and right leg pain POD#4 Plan: -Optimize pain management -Postop x-rays stable, give patients reported fall and continued post surgery back pain, will order new xrays to eval hardware today. -PT/OT -No brace -Burning with urination, UA negative -DVT: TEDs, SCDs, Lovenox -Patient discussed with Dr Seals Please call neurosurgery with any questions/concerns -Dispo planning Subjective: low back pain Objective: NAD A&Ox3 MAEx4 5/ and equal in BUE and BLE. Catheter Insertion Date: 03/25/18 - Physician Discussed Patient with : Arnel Neurosurgery Physical Exam - Vitals, I&O, Labs I and O 03/28/18 03/29/18 03/30/18 05:59 05:59 05:59 Intake Total 1300 2130 Output Total 350 1300 Balance 950 830 Intake: Oral (ml) 1300 2130 Output: Urine (ml) 350 1300 Toilet 350 1300 Other: Intake Quantity Yes Yes Sufficient Number of Voids Toilet 2 1 Number of Stools Catheter 2 Vital Signs Temp Pulse Resp BP Pulse Ox 37.0 C 82 15 116/68 97 03/28/18 23:42 03/28/18 23:42 03/28/18 23:42 03/28/18 23:42 03/28/18 23:42 ICD10 Worksheet Patient Problems: Problems Problem Status Onset Cervical myelopathy Acute
[2018-03-29 07:46] VITALS: BP 108/66
[2018-03-29] MEDS: ENOXAPARIN 40 MG/0.4 ML SYR SC SCH (09:04)
[2018-03-29] MEDS: SENNOSIDES/DOCUSATE SODIUM TAB PO SCH (09:04)
[2018-03-29] MEDS: FAMOTIDINE 20 MG TAB PO SCH (09:04)
[2018-03-29] MEDS: POLYETHYLENE GLYCOL 3350 17 GM PKT PO SCH (09:04)
--- NOTE | 2018-03-29 09:18 | PDIAF ---
- Diagnosis Code Status: Full Code - Medication Management Discharge Medications: Medications to Continue on Transfer Atorvastatin Calcium [Lipitor 40 mg (*)] 40 mg PO HS 08/31/16 [Last Taken ] Losartan Potassium [Cozaar 50 mg (*)] 50 mg PO HS 07/31/17 [Last Taken 03/23/18] SUMAtriptan [Imitrex 25 MG (*)] 25 mg PO DAILY PRN 08/06/17 [Last Taken 2 Weeks Ago ~03/11/18] Fluticasone Nasal [Flonase Nasal [place]] 2 sprays EACHNARE DAILY PRN 03/19/18 [ Last Taken 1 Month Ago ~02/23/18] Methocarbamol [Robaxin 750 mg (*)] 750 mg PO QID #60 tab 03/29/18 [Last Taken Unknown] oxyCODONE IR [Oxycodone Ir (*)] 5 - 10 mg PO Q4HRS PRN #90 tab 03/29/18 [Last Taken Unknown] Discharge Medications: Refer to the Discharge Home Medication list for PRN reason. - Orders Services needed: Physical Therapy, Occupational Therapy - Follow Up Care Current Providers and Referrals: Savannah Lazcano MD [Primary Care Provider] -
[2018-03-29] MEDS: ONDANSETRON DISINTEGRATING 4 MG TAB PO PRN (10:04)
--- NOTE | 2018-03-29 14:12 | ASMTLACE ---
LACE Length of stay for Answers: 4-6 days current admission Acuity / Level of Answers: Yes Care: Did the patient have an inpatient admission? Comorbidities - select Answers: Opioid dependence all that apply / Chronic pain Other Notes: HTN; HLD # of Emergency department Answers: 0 visits in the last 6 months Score: 12 Date Signed: 03/29/2018 02:11 PM Electronically Signed By:HCAI Killian
--- NOTE | 2018-03-29 14:13 | ASMTCMCOM ---
CM Note CM Note Notes: Pt medically stable for d/c with [facility]. Orders to be obtained via [facility]. [facility] updated. Date Signed: 03/29/2018 02:11 PM Electronically Signed By:CHAI Killian
== END 2018-03-29 15:37 | disposition home health service (06) | DRG 304 ==
LOC: F3N 07:04
PROVIDERS: ADMIT Neurological Surgery; ATTEND Neurological Surgery
PROC: 8E0WXBZ Computer Assisted Procedure of Trunk Region (ICD-10-PCS; principal; 2018-03-25 09:15)
PROC: 0SG00AJ Fusion of Lumbar Vertebral Joint with Interbody Fusion Device, Posterior Approach, Anterior Column, Open Approach (ICD-10-PCS; principal; 2018-03-25 09:15)
PROC: 00NY0ZZ Release Lumbar Spinal Cord, Open Approach (ICD-10-PCS; principal; 2018-03-25 09:15)
PROC: 4A1004G Monitoring of Central Nervous Electrical Activity, Intraoperative, Open Approach (ICD-10-PCS; principal; 2018-03-25 09:15)
PROC: 0SG30AJ Fusion of Lumbosacral Joint with Interbody Fusion Device, Posterior Approach, Anterior Column, Open Approach (ICD-10-PCS; principal; 2018-03-25 09:15)
PROC: 0ST20ZZ Resection of Lumbar Vertebral Disc, Open Approach (ICD-10-PCS; principal; 2018-03-25 09:15)
PROC: 0SG3071 Fusion of Lumbosacral Joint with Autologous Tissue Substitute, Posterior Approach, Posterior Column, Open Approach (ICD-10-PCS; principal; 2018-03-25 09:15)
PROC: 0SG0071 Fusion of Lumbar Vertebral Joint with Autologous Tissue Substitute, Posterior Approach, Posterior Column, Open Approach (ICD-10-PCS; principal; 2018-03-25 09:15)
PROC: 01NB0ZZ Release Lumbar Nerve, Open Approach (ICD-10-PCS; principal; 2018-03-25 09:15)
PROC: 01NR0ZZ Release Sacral Nerve, Open Approach (ICD-10-PCS; principal; 2018-03-25 09:15)
PROC: 00N20ZZ Release Dura Mater, Open Approach (ICD-10-PCS; principal; 2018-03-25 09:15)
DX: M43.17 Spondylolisthesis, lumbosacral region (principal); E78.5 Hyperlipidemia, unspecified; M48.061 Spinal stenosis, lumbar region without neurogenic claudication; M51.16 Intervertebral disc disorders with radiculopathy, lumbar region; I10 Essential (primary) hypertension; Z98.1 Arthrodesis status
CPT/HCPCS: 97116-GP; 97161-GP; 97166-GO; 97530-GP; 97535-GO; C1713; C1762; J0171; J0690; J1170; J1650; J1885; J2250; J2270; J2704; J2800; J3010

== ENCOUNTER → 2018-07-04 | Outpatient (CLI) | payer MEDICAID | LOC: FIMAGING 12:12 | PROVIDERS: ATTEND Family Medicine | DX: R10.2 Pelvic and perineal pain (principal); Z90.710 Acquired absence of both cervix and uterus ==

== ENCOUNTER → 2018-07-15 | Outpatient (CLI) | payer MEDICAID | LOC: FIMAGING 17:00 | PROVIDERS: ATTEND Neurological Surgery | DX: Z98.1 Arthrodesis status (principal) ==

== ENCOUNTER → 2018-10-15 | Outpatient (CLI) | payer MEDICAID | LOC: FIMAGING 15:26 | PROVIDERS: ATTEND Physician Assistant | DX: Z09 Encounter for follow-up examination after completed treatment for conditions other than malignant neoplasm (principal); Z98.1 Arthrodesis status ==